=== PATIENT | male | born 1995 | race Caucasian/White ===

== ENCOUNTER 2019-10-18 11:30 | Inpatient (IN) | payer OTHER, SELFPAY ==
[2019-10-18] MEDS ORDERED: MORPHINE 4 MG/ML SYR ONE ×2 (12:24→14:25)
[2019-10-18] MEDS ORDERED: DOXYCYCLINE 100 MG CAP PO ONE (12:24)
[2019-10-18] MEDS ORDERED: ONDANSETRON 4 MG/2 ML VIAL ONE (12:24)
[2019-10-18] MEDS ORDERED: ACETAMINOPHEN 500 MG TAB ONE (12:24)
[2019-10-18] MEDS ORDERED: NA CHLORIDE 0.9% 2,000 ML ONE (12:25)
[2019-10-18] MEDS ORDERED: CEFTRIAXONE/SWI 2gm 2 GM/20 ML SYR IV ONE (12:30)
--- NOTE | 2019-10-18 12:44 | RAD REPORT ---
EXAM DESCRIPTION: US - Scrotum Testicles - 10/18/2019 12:28 pm CLINICAL HISTORY: testicular swelling Pain and swelling COMPARISON: No comparisons FINDINGS: The right testicle 3.9 x 3.1 x 2.1 cm. No intratesticular masses or evidence of testicular torsion. The left testicle 3.6 x 3.0 x 2.7 cm. No intratesticular masses or evidence of testicular torsion. Left epididymis appears enlarged and heterogenous with increased blood flow. No pathologic fluid collections. IMPRESSION: Moderate left epididymitis is suspected.
[2019-10-18 13:12] LABS: Absolute Lymphocytes (CBC) 2.7 K/uL (0.7-4.9); Basophils % 0.3 % (0-1.3); Hematocrit 44.5 % (39.6-49.0); MPV 8.3 fL (7.6-11.3)
[2019-10-18 13:22] LABS: ALT/SGPT 30 U/L (12-78); AST/SGOT 22 U/L (15-37); Alkaline Phosphatase 107 U/L (45-117); BUN Blood Urea Nitrogen 8 mg/dL (7-18); Bicarbonate 28 mmol/L (21-32); Bilirubin Direct 0.1 mg/dL (0-0.2); Bilirubin Total 0.4 mg/dL (0.2-1.0); Creatine Phosphokinase 51 U/L (39-308); Glucose Level 80 mg/dL (74-106); Potassium 3.7 mmol/L (3.5-5.1); Protein, Total 7.5 g/dL (6.4-8.2); Sodium Level 137 mmol/L (136-145)
[2019-10-18 13:36] LABS: Protime INR 1.23
[2019-10-18 13:44] LABS: Urine Bacteria 20-50 /HPF (NONE SEEN); Urine Culture Reflex Order NOT NEEDED; Urine RBC <5 /HPF (NONE SEEN)
--- NOTE | 2019-10-18 14:00 | RAD REPORT ---
EXAM DESCRIPTION: CTAbdomen Pelvis W Contrast - 10/18/2019 1:50 pm CLINICAL HISTORY: Abdominal pain. ABD PAIN COMPARISON: Scrotum Testicles dated 10/18/2019 TECHNIQUE: Biphasic CT imaging of the abdomen and pelvis was performed with 100 ml non-ionic IV cont rast. All CT scans are performed using dose optimization technique as appropriate and may include automated exposure control or mA/KV adjustment according to patient size. FINDINGS: The lung bases are clear. The liver, spleen, pancreas, adrenal glands and kidneys are within normal limits. No bowel obstruction, free air, free fluid or abscess. The appendix is normal. No evidence of signi ficant lymphadenopathy. No suspicious bony findings. There is evidence of inflammatory changes in the fat within the left ing uinal canal extending into the left scrotal sac. Scrotal hydrocele is seen, mild. IMPRESSION: Moderate inflammatory fat stranding is seen in the left inguinal canal extending caudad into the left scrotal sac. Elsewhere, no acute process seen.
[2019-10-18 14:25] LABS: Blood Morphology Comment NOT SEEN (NOT SEEN); Platelet Estimate ADEQ; Toxic Granulation PRESENT
[2019-10-18] MEDS ORDERED: KETOROLAC 30 MG/ML INJ ONE (14:25)
--- NOTE | 2019-10-18 16:13 | P.HP ---
Certification for Inpatient Patient admitted to: Inpatient With expected LOS: >2 Midnights Practitioner: I am a practitioner with admitting privileges, knowledge of patient current condition, hospital course, and medical plan of care. Services: Services provided to patient in accordance with Admission requirements found in Title 42 Section 412.3 of the Code of Federal Regulations Patient History Date of Service: 10/18/19 Reason for admission: scrotal pain History of Present Illness: Patient is a 24-year-old male with no significant past medical history who comes in with left scrotal pain and swelling for 1 day duration. Patient also reports some fever chills denies any nausea vomiting shortness of breath, chest pain. Patient is sexually active with the same partner denies any history of sexually transmitted infections. Patient does report some burning with urination along with some discharge. Patient noticed having swelling redness and pain in the scrotal area therefore came into the hospital for further evaluation. His symptoms are constant moderate progressively worsening. In the ER he was found to be septic white count 52011. The patient was given IV fluids, IV antibiotics. CT scan of the abdomen showed inflammation on the scrotal sac extending into the inguinal canal. Ultrasound showed epididymitis. Urology was consulted. Patient was referred for admission When seen in the ER he was awake alert oriented x3 in mild distress Allergies No Known Allergies Allergy (Unverified 10/18/19 12:29) Home medications list reviewed: Yes Home Medications: Quetiapine Fumarate [Seroquel Xr] 300 mg PO DAILY PRN 10/18/19 - Past Medical/Surgical History Diabetic: No Past Medical History: Patient denies medical history Past Surgical History: Patient denies surgical history - Family History Mother -: Cancer, Other (see notes) (Bipolar disorder) - Social History Smoking Status: Heavy Tobacco smoker (>10 cigarettes/day) Smoking therapy provided: Yes Alcohol use: Yes Place of Residence: Home Review of Systems 10-point ROS is otherwise unremarkable General: Fever Genitourinary: As per HPI Physical Examination - Vital Signs Temperature: 98 F Blood Pressure: 91/65 Pulse: 95 Respirations: 16 - Physical Exam General: Alert, Oriented x3, Acute distress, Other (Ill-appearing male) HEENT: Atraumatic, PERRLA, Mucous membr. moist/pink, EOMI, Sclerae nonicteric Neck: Supple, JVD not distended Respiratory: Clear to auscultation bilaterally, Normal air movement, Other (No wheezing stridor) Cardiovascular: No edema, Normal pulses, Normal S1 S2, Irregular heart rate/rhythm Gastrointestinal: Normal bowel sounds, Soft and benign, Non-distended, No tenderness Musculoskeletal: No clubbing, No erythema, No tenderness Integumentary: Erythema Neurological: Normal speech, Normal strength at 5/5 x4 extr, Normal tone, Cranial nerves 3-12 intact, Normal affect - Studies Laboratory Data (last 24 hrs) 10/18/19 12:50: PT 14.4 H, INR 1.23, APTT 31.0 10/18/19 12:50: WBC 26.7 H*, Hgb 15.1, Hct 44.5, Plt Count 257 10/18/19 12:50: Sodium 137, Potassium 3.7, BUN 8, Creatinine 0.96, Glucose 80, Total Bilirubin 0.4, AST 22, ALT 30, Alkaline Phosphatase 107 Imagings Data: EXAM DESCRIPTION: US - Scrotum Testicles - 10/18/2019 12:28 pm CLINICAL HISTORY: testicular swelling Pain and swelling COMPARISON: No comparisons FINDINGS: The right testicle 3.9 x 3.1 x 2.1 cm. No intratesticular masses or evidence of testicular torsion. The left testicle 3.6 x 3.0 x 2.7 cm. No intratesticular masses or evidence of testicular torsion. Left epididymis appears enlarged and heterogenous with increased blood flow. No pathologic fluid collections. IMPRESSION: Moderate left epididymitis is suspected. EXAM DESCRIPTION: CTAbdomen Pelvis W Contrast - 10/18/2019 1:50 pm CLINICAL HISTORY: Abdominal pain. ABD PAIN COMPARISON: Scrotum Testicles dated 10/18/2019 TECHNIQUE: Biphasic CT imaging of the abdomen and pelvis was performed with 100 ml non-ionic IV contrast. All CT scans are performed using dose optimization technique as appropriate and may include automated exposure control or mA/KV adjustment according to patient size. FINDINGS: The lung bases are clear. The liver, spleen, pancreas, adrenal glands and kidneys are within normal limits. No bowel obstruction, free air, free fluid or abscess. The appendix is normal. No evidence of significant lymphadenopathy. No suspicious bony findings. There is evidence of inflammatory changes in the fat within the left inguinal canal extending into the left scrotal sac. Scrotal hydrocele is seen, mild. IMPRESSION: Moderate inflammatory fat stranding is seen in the left inguinal canal extending caudad into the left scrotal sac. Elsewhere, no acute process seen. Male Exam - Male Exam Scrotum: Edema, Tenderness Testicular exam: Other (Left testicle if edema of tenderness to palpation and erythema) Penile exam: No discharge Assessment and Plan - Plan Sepsis. Patient has elevated white blood cell count hypotensive. Patient received IV fluid bolus. Will obtain cultures. Likely secondary to epididymitis. Continue IV antibiotics. Epididymitis. Scrotal ultrasound and CT abdomen reviewed. Dr. Lay with urology is been consulted by the ER. Continue IV antibiotics with Rocephin and doxycycline. Will check for other STI. Will order hepatitis HIV and RPR hepatitis panel. Patient counseled to use protection during intercourse. Will add azithromycin due to penal discharge. DVT prophylaxis with Lovenox. Patient will need continued hospitalization due to sepsis and ongoing IVF resuscitation IV antibiotics and possible surgical intervention if not improving. - Advance Directives Does patient have a Living Will: No Does patient have a Durable POA for Healthcare: No
[2019-10-18] MEDS ORDERED: ONDANSETRON 4 MG/2 ML VIAL IV PRN (16:43)
[2019-10-18] MEDS ORDERED: ACETAMINOPHEN 325 MG TABLET PO PRN (16:43)
[2019-10-18] MEDS: ENOXAPARIN 40 MG/0.4 ML SQ SCH (17:37)
[2019-10-18] MEDS: NA CHLORIDE 0.9% 1,000 ML IV SCH (17:37)
[2019-10-18 17:49] VITALS: BMI 31.1
[2019-10-18] MEDS ORDERED: AZITHROMYCIN 1 GM PACKET PO SCH (18:00)
[2019-10-18 20:45] LABS: Urine Blood NEGATIVE (NEG); Urine Glucose NEGATIVE (NEG); Urine Protein TRACE (NEG); Urine Specific Gravity 1.025 (1.005-1.030); Urine pH 7.5 (5.0-7.0)
[2019-10-18] MEDS: DOXYCYCLINE 100 MG in NA CHLORIDE 0.9% 100 ML IVPB SCH (21:12)
[2019-10-18] MEDS: HYDROCODONE/APAP 7.5/325 MG TAB PO PRN (21:15)
[2019-10-18] MEDS ORDERED: QUETIAPINE FUMARATE 300 MG PO PRN (21:21)
--- NOTE | 2019-10-18 22:31 | CON ---
History Of Present Illness: A 24-year-old male who suddenly developed left orchitis last night, whic h spread to the left inguinal area and fever and chills with possibly discharge something concentrate d urine, rule out pus. He was septic on arrival to the ER with a white count of 26,000, and tachycar dic. He had CT scan of the abdomen and pelvis. Ultrasound of the scrotum showing left epididymitis. CT scan shows inflammation in the left inguinal area as well as left scrotal area. No signs of Fou rnier gangrene. He said he has had UTIs about twice in his life, but never had a workup. He may pos sibly need a workup to make sure there is no urethral stricture, for example. He has urine culture p ending and blood culture is pending. Allergies: NO KNOWN DRUG ALLERGIES. Medication: No medications at home. Allergies: NONE. Current Medications: Include Zithromax, Rocephin, doxycycline, and Lovenox along with pain medicatio ns [place] and morphine sulfate. Past Medical History: None. Past Surgical History: None. Family History: Mother has cancer or bipolar disorder. Social History: He smokes 10 cigarettes a day. Drinks alcohol. Resides at home. Review of Systems: A 10-point review of systems as mentioned above. Some fever and urinary symptoms as mentioned. Did have some dysuria, however. Physical Examination: Vital Signs: T-max 98.9, 87, 20, 122/58, sats 98% on room air. General: He is alert, orient x3. No acute distress. HEENT: Atraumatic, normocephalic. Neck: Supple. Respiratory: Clear. Cardiovascular: S1-S2. Gastrointestinal: Normal bowel sounds. Musculoskeletal: Negative. Skin: Some erythema over the left scrotal area and tender scrotal area and phallus circumcised. No discharge. Right testicle normal. Left scrotum is swollen and tender. Left inguinal area is also t lizette. Laboratory Studies: White count 26.7, H and H 15 and 45, platelet count 258. Coagulation studies no rmal. Chemistries normal with albumin low at 3.0 and high at 4.5. UA shows less than 5 rbc's, white count 20-50, squamous cells 5-10, bacteria 20-50. Cultures pending and syphilis titer sent, hepatit is B, HIV, GC and chlamydia sent. Ultrasound of the testicle showed moderate left epididymitis and C T scan showed moderate inflammatory stranding in the left inguinal canal extending caudal to the left scrotal sac. Assessment: Left epididymal orchitis. Plan: IV antibiotics and await culture results. RONIT/NUVIA Voice ID: [id number] Report ID: [id number]
[2019-10-19 06:33] LABS: BUN Blood Urea Nitrogen 8 mg/dL (7-18); Bicarbonate 27 mmol/L (21-32); Glucose Level 96 mg/dL (74-106); Potassium 3.9 mmol/L (3.5-5.1); Sodium Level 140 mmol/L (136-145)
[2019-10-19 07:07] LABS: Absolute Lymphocytes (CBC) 3.4 K/uL (0.7-4.9); Basophils % 0.3 % (0-1.3); Lymphocytes % 18.8 % (15.3-44.8); MPV 9.6 fL (7.6-11.3)
[2019-10-19] MEDS: DOXYCYCLINE 100 MG in NA CHLORIDE 0.9% 100 ML IVPB SCH ×2 (08:50→21:25)
[2019-10-19] MEDS: CEFTRIAXONE/SWI 1gm 1 GM/10 ML SYR IVP SCH (08:50)
[2019-10-19] MEDS: MORPHINE 2 MG/ML SYR IV PRN ×2 (08:58→21:33)
[2019-10-19] MEDS: HYDROCODONE/APAP 7.5/325 MG TAB PO PRN (12:05)
[2019-10-19] MEDS: NA CHLORIDE 0.9% 1,000 ML IV SCH ×3 (12:05→21:23)
--- NOTE | 2019-10-19 12:53 | EKG ---
Test Date: 2019-10-18 Test Time: 12:04:23 Clay Roaster: LESLEE MEASUREMENT RESULTS: Intervals: Rate: 119 DC: 136 QRSD: 106 QT: 324 QTc: 455 [place]: P: 57 DC: 136 QRS: 29 T: 43 INTERPRETIVE STATEMENTS: Sinus tachycardia Otherwise normal ECG No previous ECG available for comparison Electronically Signed On 10-19-19 12:50:41 CDT by Chris Fernando
--- NOTE | 2019-10-19 13:47 | P.CNS ---
Date of Consult: 10/19/19 Subjective: The patient is a 24-year-old male who presents with a left scrotal pain and swelling x2 days. Patient found to have leukocytosis, sepsis and epididymitis which have been consulted for. Patient examined at bedside. Past medical/Surgical history: Denies any past medical or surgical history Family history: Noncontributory Social history: Smokes 5-20 cigarettes per day. Occasional alcohol use Allergies: NKDA Active Medications Acetaminophen (Tylenol -Tablet) 325 mg PO Q4H PRN PRN Reason: TEMP > 100' F Stop: 11/17/19 16:44 Hydrocodone Bitart/Acetaminophen ([place] 7.5/325 Mg) 1 tab PO Q4H PRN PRN Reason: Pain scale 8-10 (Severe) Stop: 11/17/19 16:44 Last Admin: 10/19/19 12:05 Dose: 1 tab Documented by: Enoxaparin Sodium (Lovenox 40 Mg Inj) 40 mg SQ DAILY 5 PM [facility] Stop: 11/17/19 17:16 Last Admin: 10/18/19 17:37 Dose: 40 mg Documented by: Home Med (Quetiapine Fumarate [Seroquel Xr]) 300 mg PO DAILY PRN PRN Reason: INSOMNIA Sodium Chloride (Ns 1000 Ml Ivbag) 1,000 mls @ 125 mls/hr IV .Q8H JESUS Stop: 11/17/19 16:44 Last Admin: 10/19/19 12:05 Dose: 1,000 mls Documented by: Doxycycline Hyclate 100 mg/ (Sodium Chloride) 100 mls @ 100 mls/hr IVPB Q12HR JESUS; Protocol Stop: 11/17/19 21:01 Last Admin: 10/19/19 08:50 Dose: 100 mls Documented by: Ceftriaxone Sodium/Sodium Chloride (Rocephin 1 Gm/10 Ml Swi Ivp) 1 gm in 10 mls @ 600 mls/hr IVP DAILY [facility]; Protocol Stop: 11/18/19 09:01 Last Admin: 10/19/19 08:50 Dose: 10 mls Documented by: Morphine Sulfate (Morphine Sulfate) 2 mg IV Q6H PRN PRN Reason: MODSEVPAIN Stop: 11/17/19 16:44 Last Admin: 10/19/19 08:58 Dose: 2 mg Documented by: Ondansetron HCl (Zofran) 4 mg IV Q4H PRN PRN Reason: NAUSEA / VOMITING Stop: 11/17/19 16:44 Sodium Chloride (Normal Saline Flush) 10 ml IV BID JESUS Stop: 11/17/19 21:01 Last Admin: 10/19/19 08:50 Dose: Not Given Documented by: ROS: General: reports sexually active with single partner. Reports good appetite CV: Denies chest pain RESP: Denies shortness of breath, cough ABD: Reports LLQ pain : Reports burning/pain with urination and smith discharge GI: Denies nausea, vomiting, diarrhea Skin: Reports erythema, swelling and pain to left testicle Objective: Temp Pulse Resp BP Pulse Ox 97.6 F 80 18 104/54 L 99 10/19/19 08:00 10/19/19 08:00 10/19/19 12:05 10/19/19 08:00 10/19/19 12:05 Labs: Na 140, K 3.9, BUN 8, Creat 0.93, Albumin 3.0, WBC 18, Plt [address] 10/17: EXAM DESCRIPTION: CTAbdomen Pelvis W Contrast - 10/18/2019 1:50 pm CLINICAL HISTORY: Abdominal pain. ABD PAIN COMPARISON: Scrotum Testicles dated 10/18/2019 TECHNIQUE: Biphasic CT imaging of the abdomen and pelvis was performed with 100 ml non-ionic IV contrast. All CT scans are performed using dose optimization technique as appropriate and may include automated exposure control or mA/KV adjustment according to patient size. FINDINGS: The lung bases are clear. The liver, spleen, pancreas, adrenal glands and kidneys are within normal limits. No bowel obstruction, free air, free fluid or abscess. The appendix is normal. No evidence of significant lymphadenopathy. No suspicious bony findings. There is evidence of inflammatory changes in the fat within the left inguinal canal extending into the left scrotal sac. Scrotal hydrocele is seen, mild. IMPRESSION: Moderate inflammatory fat stranding is seen in the left inguinal canal extending caudad into the left scrotal sac. Elsewhere, no acute process seen. Scrotum ultrasound 10/17: EXAM DESCRIPTION: US - Scrotum Testicles - 10/18/2019 12:28 pm CLINICAL HISTORY: testicular swelling Pain and swelling COMPARISON: No comparisons FINDINGS: The right testicle 3.9 x 3.1 x 2.1 cm. No intratesticular masses or evidence of testicular torsion. The left testicle 3.6 x 3.0 x 2.7 cm. No intratesticular masses or evidence of testicular torsion. Left epididymis appears enlarged and heterogenous with increased blood flow. No pathologic fluid collections. IMPRESSION: Moderate left epididymitis is suspected. ROS: General: Awake, alert CV: S1,S2 RESP: Good breath sounds ABD: Tenderness to LLQ extending down left groin Extremities:No edema Skin: Erythema, warm, and swollen left testicle Assessment and Plan: Sepsis & Leukocytosis, from epididymitis Urine and blood cultures show no growth to date Epididymitis, Currently on Rocephin and Doxycyclin Upon discharge can be switched to Doxycycline 100mg PO BID and Ciprofloxacin 500mg PO BID Antibiotic treatment for total of 14 days Will continue to monitor Thank you for consult Patient examined and discussed with Dr. Renteria
--- NOTE | 2019-10-19 13:59 | PN ---
Date of Progress Note: 10/19/2019 Patient seen and examined. Chart reviewed and case discussed with RN. Patient still having significant amount of pain and redness. No acute events overnight. Medications: List reviewed. Physical Examination: Vital Signs: Temperature 97.6, heart rate 80, blood pressure 104/54, respirations 18, O2 sat 99% on room air. General: Awake, alert, oriented x3, in some mild distress, ill-appearing male, obese. CV: S1, S2. Regular rate and rhythm. Peripheral pulses present. Respiratory: Moving air well bilaterally. No wheezing or stridor. Gastrointestinal: Abdomen is soft. Left inguinal area is tender. No rebound or guarding. Extremities: No clubbing, cyanosis, or edema. : Left testicle is red, swollen. Right testicle is normal. Extremities: No clubbing, cyanosis, or edema. Neuro: Nonfocal. Laboratory Data: Sodium 140, potassium 3.9, chloride 107, CO2 of 27, BUN 8, creatinine 0.93, glucose 96, calcium 8. WBC 18, H and H 13 and 38, platelets 226, neutrophils 72%. Cultures pending, so for growing mixed ximena. Blood cultures pending. Assessment And Plan: A 24-year-old male with: 1. Sepsis secondary to epididymitis. We will continue with intravenous fluids, intravenous antibiotics. White blood cell count is trending down. Blood pressure has improved. Continue with pain control. 2. Acute epididymitis on left. Appreciate Dr. Lay's input. We will continue with Rocephin, doxycycline. Patient received 1 time dose of 1 g of azithromycin. STI panel including HIV, hepatitis pending. 3. Generalized anxiety. Patient uses Seroquel. 4. Obesity BMI greater than 30. Counseled 5. Follow up with culture results, likely discharge in next 24 to 48 hours depending on clinical response. Deep vein thrombosis prophylaxis with Lovenox SA/MODL Voice ID: [id number] Report ID: [id number] MTDD
[2019-10-19] MEDS: ENOXAPARIN 40 MG/0.4 ML SQ SCH (17:15)
--- NOTE | 2019-10-19 18:14 | PN ---
Subjective: Patient is feeling well. Objective: Swelling is going down. [place] [address] [place] [address]. Urine culture showing less than 10,000 growths. Blood cultures were still pending. Serological tests are still pending home. Assessment: Left epididymal orchitis with extension to the left inguinal area. Plan: Continue antibiotics. Check cultures. Hopefully, the patient will go home with p.o. abx. RONIT/NUVIA Voice ID: [id number] Report ID: [id number] [facility]
[2019-10-19 22:19] LABS: RPR (Rapid Plasma Reagin) NON-REACT (NON-REACT)
[2019-10-20] MEDS: NA CHLORIDE 0.9% 1,000 ML IV SCH ×3 (00:43→08:43)
[2019-10-20 04:27] LABS: Absolute Lymphocytes (CBC) 3.9 K/uL (0.7-4.9); Basophils % 0.7 % (0-1.3); Hematocrit 39.4 % (39.6-49.0); Lymphocytes % 30.3 % (15.3-44.8); MPV 8.9 fL (7.6-11.3); RBC Red Blood Cell Count 4.15 M/uL (4.33-5.43)
[2019-10-20 04:39] LABS: BUN Blood Urea Nitrogen 7 mg/dL (7-18); Bicarbonate 28 mmol/L (21-32); Glucose Level 83 mg/dL (74-106); Potassium 3.9 mmol/L (3.5-5.1); Sodium Level 140 mmol/L (136-145)
[2019-10-20] MEDS: CEFTRIAXONE/SWI 1gm 1 GM/10 ML SYR IVP SCH (08:45)
[2019-10-20] MEDS: DOXYCYCLINE 100 MG in NA CHLORIDE 0.9% 100 ML IVPB SCH (08:46)
[2019-10-20 09:53] VITALS: O2SAT 98
[2019-10-20 09:54] VITALS: BP 132/69; TEMP 97.5
--- NOTE | 2019-10-20 23:42 | DS ---
Date of Discharge: 10/20/2019 Consultants: Dr. Lay with Urology and Dr. Renteria with Infectious Disease. Admitting Diagnoses: 1.Sepsis secondary to epididymitis. 2.Acute right epididymitis. 3.Obesity. Discharge Diagnoses: 1.Sepsis, resolved. 2.Acute epididymitis on the left, improved. 3.Generalize anxiety, on Seroquel p.r.n. 4.Obesity, BMI of greater than 31. Hospital Course: Patient is a 24-year-old male, came in with left-sided scrotal pain and swelling an d redness. Patient had unprotected sex. Patient was found to be septic. Patient was febrile, hypot ensive with white blood cell count of 26,000. He was admitted to the hospital for further evaluation . His ultrasound showed left-sided epididymitis. CT scan showed moderate inflammatory fat stranding in the left inguinal canal extending caudad into the left scrotal sac. There was no abscess. Patie nt was seen by Dr. Lay with Urology, did not recommend any surgical intervention. Patient improved with IV antibiotics. He was counseled extensively regarding safe sex and to use protection. He voi eugenio understanding. Patient was also tested for syphilis, which was negative. GC was pending as was the hepatitis and HIV panel. His urine culture showed mixed ximena. Blood cultures were negative to date. His sepsis improved. His blood pressure also improved. His white blood cell count came down to 13,000 from 26,000. He was afebrile for greater than 48 hours and greater than 24 hours. He was able to tolerate his diet. Patient was recommended to be discharged on 2 weeks total of Cipro and do xy. He did receive azithromycin to cover for gonorrhea as he did have penile discharge. Patient was then stable, sent home in a stable condition. Activity: As tolerated. Medications: As per medication reconciliation list. He is not to take Seroquel while on Cipro. Followup: With urologist, Dr. Lay in 2 weeks. Follow up with Infectious Disease, Dr. Renteria, in 2 weeks. Establish care with PCP in 1 week. Return to ER for worsening condition. Follow up with he patitis and HIV panel through PCP or urologist. Physical Examination: General: Awake, alert, oriented x3. No acute distress. CV: S1, S2. Respiratory: Moving air well bilaterally. Abdomen: Soft, nontender, nondistended. Minimal tenderness on the left inguinal area. : Left testicle minimally swollen, erythema significantly improved. Extremities: No clubbing, cyanosis, edema. Neurologic: Nonfocal. Total time spent discharging patient was 35 minutes. CLARENCE Voice ID: [id number] Report ID: [id number]
[2019-10-21 15:30] LABS: HIV AG/AB 4TH GEN Non-reactive (Non-reactive)
[2019-10-22 03:24] LABS: HBsAG Nonreactive (Nonreactive)
--- NOTE | 2019-10-24 13:19 | ER ---
Nurse's Notes [facility] Name: Caio Moore Age: 24 yrs Sex: Male : 1995 Arrival Date: 10/18/2019 Time: 11:33 Bed 16 Private MD: Diagnosis: Severe sepsis;Epididymitis Presentation: 10/17 11:43 Chief complaint: Patient states: DYSURIA YESTERDAY, LEFT TESTICLE SWELLING AND LEFT bp GROIN PAIN SINCE Y/D. Coronavirus screen: Proceed with normal triage. Ebola Screen: No symptoms or risks identified at this time. Initial Sepsis Screen: Does the patient meet any 2 criteria? HR > 90 bpm. No. Patient's initial sepsis screen is negative. Does the patient have a suspected source of infection? Yes: Dysuria/Frequency/Urgency/UTI. Risk Assessment: Do you want to hurt yourself or someone else? Patient reports no desire to harm self or others. Onset of symptoms is unknown. 11:43 Method Of Arrival: Wheelchair bp 11:43 Acuity: TRISTON 3 bp Triage Assessment: 11:48 General: Appears distressed, uncomfortable, Behavior is cooperative, appropriate for bp age, anxious. 11:48 Pain: Complains of pain in pelvis. EENT: No deficits noted. Neuro: No deficits noted. bp Cardiovascular: No deficits noted. Respiratory: No deficits noted. GI: No deficits noted. : Reports burning with urination, discharge. Derm: No deficits noted. Musculoskeletal: No deficits noted. Historical: - Allergies: 11:48 No Known Allergies; bp - Home Meds: 11:48 Seroquel Oral [Active]; bp - PMHx: 11:48 INSOMNIA; bp - Immunization history:: Adult Immunizations up to date. - Social history:: Smoking status: Patient denies any tobacco usage or history of. Screenin:45 Abuse screen: Denies threats or abuse. Denies injuries from another. Nutritional bp screening: No deficits noted. Tuberculosis screening: No symptoms or risk factors identified. Fall Risk None identified. Assessment: 11:45 General: SEE TRIAGE NOTE. bp 12:30 Reassessment: PT RETURNED FROM [place] bp Vital Signs: 11:43 BP 124 / 77; Pulse 123; Resp 17; Temp 100.7; Pulse Ox 99% ; Weight 99.79 kg; Height 5 bp ft. 11 in. (180.34 cm); 12:30 BP 129 / 68; Pulse 119; Resp 19; Pulse Ox 99% ; bp 13:00 BP 120 / 88; Pulse 110; Resp 17; Pulse Ox 100% ; bp 15:00 BP 102 / 66; Pulse 117; Resp 16; Pulse Ox 97% ; bp 16:00 BP 91 / 65; Pulse 95; Resp 16; Temp 98.9; Pulse Ox 97% ; bp 11:43 Body Mass Index 30.68 (99.79 kg, 180.34 cm) bp ED Course: 11:33 Patient arrived in ED. ag5 11:36 Aguila Fernandez, RN is Primary Nurse. bp 11:36 Nathanael Villafuerte PA is PHCP. jr8 11:36 Bhavesh Guillen MD is Attending Physician. jr8 11:45 Triage completed. bp 11:45 Patient has correct armband on for positive identification. Placed in gown. Bed in low bp position. Call light in reach. Side rails up X2. 11:50 Arm band placed on. bp 12:30 US Scrotum Testicles In Process Unspecified. EDMS 12:45 Inserted saline lock: 20 gauge in left forearm, using aseptic technique. Blood bp collected. 13:52 CT Abd/Pelvis - IV Contrast Only In Process Unspecified. EDMS 14:10 Carlos Miller MD is Hospitalizing Provider. jr8 16:24 No provider procedures requiring assistance completed. Patient admitted, IV remains in bp place. Administered Medications: 12:45 Drug: Acetaminophen 1000 mg Route: PO; bp 16:31 Follow up: Response: Temperature is decreased bp 12:45 Drug: NS 0.9% (30 ml/kg) 30 ml/kg Route: IV; Rate: bolus; Site: left forearm; bp 16:31 Follow up: IV Status: Completed infusion; IV Intake: 3000ml bp 12:45 Drug: morphine 4 mg Route: IVP; Site: left forearm; bp 14:11 Follow up: Response: Pain is decreased bp 12:45 Drug: Zofran (Ondansetron) 4 mg Route: IVP; Site: left forearm; bp 14:11 Follow up: Response: No adverse reaction bp 13:05 Drug: Rocephin 2 grams Route: IV; Rate: calculated rate; Site: left forearm; bp 16:24 Follow up: IV Status: Completed infusion; IV Intake: 20ml bp 13:05 Drug: Doxycycline 100 mg Route: PO; bp 14:11 Follow up: Response: No adverse reaction bp 14:15 Drug: TORadol - Ketorolac 15 mg Route: IVP; Site: left forearm; bp 16:25 Follow up: Response: No adverse reaction; Pain is decreased bp 14:15 Drug: morphine 4 mg Route: IVP; Site: left forearm; bp 16:25 Follow up: Response: No adverse reaction; Pain is decreased bp Intake: 16:24 IV: 20ml; Total: 20ml. bp 16:31 IV: 3000ml; Total: 3020ml. bp Outcome: 14:11 Decision to Hospitalize by Provider. larissa 16:29 Admitted to Med/surg accompanied by tech, via stretcher, room 223, with chart, Report bp called to ANÍBAL RN 16:29 Condition: stable 16:29 Instructed on the need for admit. 17:15 Patient left the ED. bp Signatures: Dispatcher [employer] EDNathanael Hernandez PA PA jr8 Aguila Fernandez, RN RN bp David Hinds ag5
--- NOTE | 2019-10-24 13:20 | EDPHYS ---
Physician Documentation [facility] Name: Caio Moore Age: 24 yrs Sex: Male : 1995 Arrival Date: 10/18/2019 Time: 11:33 Bed 16 Private MD: ED Physician Bhavesh Guillen HPI: 10/17 12:10 This 24 yrs old Male presents to ER via Wheelchair with complaints of jr8 Testicular Swelling, Testicular Pain. 12:10 The patient presents with scrotal pain, of the left side, with swelling, with erythema, jr8 tenderness, that is moderate, of the left inguinal area, in the area of the epidydimis. Onset: The symptoms/episode began/occurred acutely, yesterday. Modifying factors: The symptoms are alleviated by nothing, the symptoms are aggravated by urinating. Associated signs and symptoms: Pertinent positives: abdominal pain, dysuria, fever. Severity of symptoms: At their worst the symptoms were moderate, in the emergency department the symptoms are unchanged. The patient has not experienced similar symptoms in the past. The patient has not recently seen a physician. Stated that he is sexually active with one partner. Has also seen yellow discharge from urethra . Historical: - Allergies: 11:48 No Known Allergies; bp - Home Meds: 11:48 Seroquel Oral [Active]; bp - PMHx: 11:48 INSOMNIA; bp - Immunization history:: Adult Immunizations up to date. - Social history:: Smoking status: Patient denies any tobacco usage or history of. ROS: 12:10 Eyes: Negative for injury, pain, redness, and discharge, ENT: Negative for injury, jr8 pain, and discharge, Neck: Negative for injury, pain, and swelling, Cardiovascular: Negative for chest pain, palpitations, and edema, Respiratory: Negative for shortness of breath, cough, wheezing, and pleuritic chest pain, Back: Negative for injury and pain, MS/Extremity: Negative for injury and deformity, Skin: Negative for injury, rash, and discoloration, Neuro: Negative for headache, weakness, numbness, tingling, and seizure. 12:10 Constitutional: Positive for fever. 12:10 Abdomen/GI: Positive for abdominal pain, nausea, Negative for vomiting, diarrhea, constipation, abdominal cramps, abdominal distension. 12:10 : Positive for urinary symptoms, burning with urination, penile discharge, testicular pain Exam: 12:10 Eyes: Pupils equal round and reactive to light, extra-ocular motions intact. Lids and jr8 lashes normal. Conjunctiva and sclera are non-icteric and not injected. Cornea within normal limits. Periorbital areas with no swelling, redness, or edema. ENT: Nares patent. No nasal discharge, no septal abnormalities noted. Tympanic membranes are normal and external auditory canals are clear. Oropharynx with no redness, swelling, or masses, exudates, or evidence of obstruction, uvula midline. Mucous membranes moist. Neck: Trachea midline, no thyromegaly or masses palpated, and no cervical lymphadenopathy. Supple, full range of motion without nuchal rigidity, or vertebral point tenderness. No Meningismus. Cardiovascular: Regular rate and rhythm with a normal S1 and S2. No gallops, murmurs, or rubs. Normal PMI, no JVD. No pulse deficits. Respiratory: Lungs have equal breath sounds bilaterally, clear to auscultation and percussion. No rales, rhonchi or wheezes noted. No increased work of breathing, no retractions or nasal flaring. Skin: Warm, dry with normal turgor. Normal color with no rashes, no lesions, and no evidence of cellulitis. MS/ Extremity: Pulses equal, no cyanosis. Neurovascular intact. Full, normal range of motion. Neuro: Awake and alert, GCS 15, oriented to person, place, time, and situation. Cranial nerves II-XII grossly intact. Motor strength 5/5 in all extremities. Sensory grossly intact. Cerebellar exam normal. Normal gait. 12:10 Abdomen/GI: Inspection: abdomen appears normal, Bowel sounds: active, all quadrants, Palpation: soft, in all quadrants, moderate abdominal tenderness, in the left lower quadrant, mass, is not appreciated, rebound tenderness, is not appreciated, voluntary guarding, is not appreciated, involuntary guarding, is not appreciated, no appreciated organomegaly, Indicators: McBurney's point is not tender, Goff's sign is negative, Rovsing's sign is negative, Liver: no appreciated palpable abnormalities. 12:10 : Male external genitalia: Circumcision noted. erythema, of the left testicle is seen, that is mild, swelling: of the left testicle is noted, testicle, tenderness, of the left testicle is noted, is palpated in the left inguinal area, of the epididymis area, that is moderate, Sexual behavior: the patient is sexually active, and reports a single partner. 12:19 ECG was reviewed by the Attending Physician. jr8 Vital Signs: 11:43 BP 124 / 77; Pulse 123; Resp 17; Temp 100.7; Pulse Ox 99% ; Weight 99.79 kg; Height 5 bp ft. 11 in. (180.34 cm); 12:30 BP 129 / 68; Pulse 119; Resp 19; Pulse Ox 99% ; bp 13:00 BP 120 / 88; Pulse 110; Resp 17; Pulse Ox 100% ; bp 15:00 BP 102 / 66; Pulse 117; Resp 16; Pulse Ox 97% ; bp 16:00 BP 91 / 65; Pulse 95; Resp 16; Temp 98.9; Pulse Ox 97% ; bp 11:43 Body Mass Index 30.68 (99.79 kg, 180.34 cm) bp MDM: 11:36 Patient medically screened. 8 14:09 Data reviewed: vital signs, nurses notes, lab test result(s), radiologic studies, jr8 doppler. Data interpreted: Pulse oximetry: on room air is 100 %. Interpretation: normal. Counseling: I had a detailed discussion with the patient and/or guardian regarding: the historical points, exam findings, and any diagnostic results supporting the discharge/admit diagnosis, lab results, radiology results, the need for further work-up and treatment in the hospital. 14:44 ED course: Spoke with Dr. Lay about case who will consult on case. Asked Dr. Miller to 8 add HIV and hepatitis panel as well which he said he will do. 10/17 11:50 Order name: Urine Culture 10/17 11:50 Order name: Basic Metabolic Panel; Complete Time: 13:23 [facility] 10/17 11:50 Order name: Blood Culture Adult (2) [facility] 10/17 11:50 Order name: CBC with Diff; Complete Time: 14:28 [facility] 10/17 11:50 Order name: CPK; Complete Time: 13:23 [facility] 10/17 11:50 Order name: Lactate; Complete Time: 13:53 [facility] 10/17 11:50 Order name: LFT's; Complete Time: 13:23 [facility] 10/17 11:50 Order name: Procalcitonin; Complete Time: 13:53 [facility] 10/17 11:50 Order name: Protime (+inr); Complete Time: 13:53 [facility] 10/17 11:50 Order name: Ptt, Activated; Complete Time: 13:53 [facility] 10/17 11:50 Order name: Urine Microscopic Only; Complete Time: 13:53 [facility] 10/17 11:50 Order name: Gc Culture [facility] 10/17 13:37 Order name: Urine Dipstick--Ancillary (enter results) 10/17 14:26 Order name: Manual Differential; Complete Time: 14:28 [facility] 10/17 11:50 Order name: Accucheck; Complete Time: 13:06 [facility] 10/17 11:50 Order name: Cardiac monitoring; Complete Time: 13:06 [facility] 10/17 11:50 Order name: EKG - Nurse/Tech; Complete Time: 12:11 [facility] 10/17 11:52 Order name: US Scrotum Testicles; Complete Time: 12:49 [facility] 10/17 13:32 Order name: CT Abd/Pelvis - IV Contrast Only; Complete Time: 14:02 [facility] 10/17 14:57 Order name: Hepatitis Panel,Acute [facility] 10/17 14:57 Order name: HIV (1 [facility] 10/17 14:59 Order name: RPR [facility] 10/17 11:50 Order name: IV Saline Lock - Large Bore; Complete Time: 13:06 [facility] 10/17 11:50 Order name: Labs collected and sent; Complete Time: 13:06 [facility] 10/17 11:50 Order name: O2 Per Protocol; Complete Time: 12:11 [facility] 10/17 11:50 Order name: O2 Sat Monitoring; Complete Time: 12:11 [facility] 10/17 11:50 Order name: Urine Dipstick-Ancillary (obtain specimen); Complete Time: 13:12 EC:19 Rate is 119 beats/min. Rhythm is regular, Sinus tachycardia. QRS Metaline is Normal. FL jr8 interval is normal at 136 msec. QRS interval is normal at 106 msec. QT interval is normal at 455 msec. No Q waves. T waves are Normal. No ST changes noted. Clinical impression: Sinus tachycardia and No evidence of ischemia. Interpreted by me. Reviewed by me. Administered Medications: 12:45 Drug: Acetaminophen 1000 mg Route: PO; bp 16:31 Follow up: Response: Temperature is decreased bp 12:45 Drug: NS 0.9% (30 ml/kg) 30 ml/kg Route: IV; Rate: bolus; Site: left forearm; bp 16:31 Follow up: IV Status: Completed infusion; IV Intake: 3000ml bp 12:45 Drug: morphine 4 mg Route: IVP; Site: left forearm; bp 14:11 Follow up: Response: Pain is decreased bp 12:45 Drug: Zofran (Ondansetron) 4 mg Route: IVP; Site: left forearm; bp 14:11 Follow up: Response: No adverse reaction bp 13:05 Drug: Rocephin 2 grams Route: IV; Rate: calculated rate; Site: left forearm; bp 16:24 Follow up: IV Status: Completed infusion; IV Intake: 20ml bp 13:05 Drug: Doxycycline 100 mg Route: PO; bp 14:11 Follow up: Response: No adverse reaction bp 14:15 Drug: TORadol - Ketorolac 15 mg Route: IVP; Site: left forearm; bp 16:25 Follow up: Response: No adverse reaction; Pain is decreased bp 14:15 Drug: morphine 4 mg Route: IVP; Site: left forearm; bp 16:25 Follow up: Response: No adverse reaction; Pain is decreased bp Disposition: 18:22 Co-signature as Attending Physician, Bhavesh Guillen MD. rn Disposition: 10/18/19 14:11 Hospitalization ordered by Carlos Miller for Inpatient Admission. Preliminary diagnosis are Severe sepsis, Epididymitis. - Bed requested for Telemetry/MedSurg (Inpatient). - Status is Inpatient Admission. bp - Condition is Fair. - Problem is new. - Symptoms have improved. Signatures: Dispatcher [employer] EDMS Bhavesh Guillen MD MD rn Nathanael Villafuerte PA PA jr8 Aguila Fernandez, RN RN April Armendariz Corrections: (The following items were deleted from the chart) 15:38 14:11 Hospitalization Ordered by Carlos Miller MD for Inpatient Admission. Preliminary eb diagnosis is Severe sepsis; Epididymitis. Bed requested for Telemetry/MedSurg (Inpatient). Status is Inpatient Admission. Condition is Fair. Problem is new. Symptoms have improved. jr8 17:15 15:38 10/18/2019 14:11 Hospitalization Ordered by Carlos Miller MD for Inpatient bp Admission. Preliminary diagnosis is Severe sepsis; Epididymitis. Bed requested for Telemetry/MedSurg (Inpatient). Status is Inpatient Admission. Condition is Fair. Problem is new. Symptoms have improved. eb
[2019-10-26 14:39] LABS: C.trachomatis RNA,TMA Not Detected (Not Detected)
== END 2019-10-20 11:13 | disposition home or self-care (01) | DRG 872 ==
LOC: ER 11:30 → ERHOLD 14:55 → 2ND 16:30
PROVIDERS: ADMIT Family Medicine; ATTEND Family Medicine
DX: A41.9 Sepsis, unspecified organism (principal); N45.1 Epididymitis; F17.210 Nicotine dependence, cigarettes, uncomplicated; N45.2 Orchitis; F41.9 Anxiety disorder, unspecified; E66.9 Obesity, unspecified; Z68.30 Body mass index [BMI] 30.0-30.9, adult; Z79.899 Other long term (current) drug therapy
CPT/HCPCS: 36415; 74177; 76870; 80048; 80074; 80076; 81003; 81015; 82550; 83605; 84145; 85025; 85610; 85730; 86592; 87040; 87086; 87088; 87389; 87490; 87590; 93005; 94760; 96365; 96366; 96375; 99285; J0696; J1650; J2270; J2405; J7030; Q9967

== ENCOUNTER 2024-01-11 23:35 | Emergency (ER) | payer SELFPAY ==
--- NOTE | 2024-01-11 23:47 | EDPHYS ---
Physician Documentation [facility] Name: Caio Moore Age: 28 yrs Sex: Male : 1995 Arrival Date: 01/11/2024 Time: 23:35 Bed Waiting Private MD: ED Physician Meet Green HPI: 01/10 23:48 This 28 yrs old Male presents to ER via Unassigned with complaints of Leg Pain. kb 23:48 Pt is a 28 year old male who presents for redness and swelling to right lower leg that kb started 7 days ago. States he had a scratch on his leg and also got bit by some ants so is not sure which caused the infection. Denies fever, nausea, vomiting. . Historical: - Allergies: 23:48 No Known Allergies; ss - Home Meds: 23:48 None [Active]; ss - PMHx: 23:48 insomnia; ss - Immunization history:: Client reports receiving the 2nd dose of the Covid vaccine. - Infectious Disease History:: Denies. - Social history:: Smoking status: Patient reports the use of cigarette tobacco products, smokes one pack cigarettes per day. ROS: 23:47 Constitutional: As per HPI kb Exam: 23:47 Constitutional: This is a well developed, well nourished patient who is awake, alert, kb and in no acute distress. Head/Face: Normocephalic, atraumatic. ENT: Moist Mucous membranes Cardiovascular: Regular rate Respiratory: Respirations even and unlabored. No increased work of breathing. Talking in full sentences MS/ Extremity: Pulses equal, no cyanosis. Neurovascular intact. Full, normal range of motion. Neuro: Awake and alert, GCS 15, oriented to person, place, time, and situation. Moves all extremities. Normal gait. 23:47 Skin: cellulitis, that is moderate, on the right duncan, Vital Signs: 23:45 BP 126 / 67; Pulse 87; Resp 16; Temp 98.7(TE); Pulse Ox 97% on R/A; Weight 104.33 kg; ss Height 6 ft. 0 in. ; Pain 5/10; 23:45 Body Mass Index 31.19 (104.33 kg, 182.88 cm) ss 23:45 Pain Scale: Adult ss MDM: 23:41 Patient medically screened. kb 23:47 Differential diagnosis: abscess, insect bite, cellulitis. Data reviewed: vital signs, kb nurses notes. Historians other than the Patient: Spouse/Significant Other: significant other. Counseling: I had a detailed discussion with the patient and/or guardian regarding the historical points, exam findings, and any diagnostic results supporting the discharge/admit diagnosis, the need for outpatient follow up, a family practitioner, to return to the emergency department if symptoms worsen or persist or if there are any questions or concerns that arise at home. 23:48 Test considered but Not performed: Labs: cbc, cmp considered but pt is nontoxic in kb appearance, afebrile. . Administered Medications: 23:58 Drug: Cephalexin PO 500 mg PO once Route: PO; 23:59 Follow up: Response: Medication Administered at Departure 23:59 Drug: Trimethoprim-Sulfamethoxazole PO (160 mg-800 mg (DS) 1 tablet PO once Route: PO; 23:59 Follow up: Response: Medication Administered at Departure Disposition: 01/11 02:40 Co-signature as Attending Physician, Meet Green MD I reviewed the patient's care rt provided by the Advanced Practice Provider and agree with the diagnosis and treatment plan. Disposition Summary: 01/11/24 23:47 Discharge Ordered Notes: Location: Home kb Condition: Stable kb Diagnosis - Cellulitis of right lower limb kb Followup: kb - With: Emergency Department - When: As needed - Reason: Worsening of condition Followup: kb - With: Private Physician - When: 2 - 3 days - Reason: Recheck today's complaints, Continuance of care, Re-evaluation by your physician Discharge Instructions: - Discharge Summary Sheet kb - Cellulitis, Adult, [id number] kb Forms: - Medication Reconciliation Form kb - Antibiotic Education kb - Prescription Opioid Use kb - Patient Portal Instructions kb - Leadership Thank You Letter kb Prescriptions: - Cephalexin 500 mg Oral Capsule - take 1 capsule ORAL route every 8 hours for 10 days; 30 capsule; Refills: 0, kb Product Selection Permitted - Bactrim DS 800-160 mg Oral Tablet - take 1 tablet ORAL route every 12 hours for 10 days; 20 tablet; Refills: 0, kb Product Selection Permitted Signatures: Chika Spears, Marlene Blancas RN RN Meet Loredo MD MD rt
[2024-01-11] MEDS ORDERED: SMZ./TMP. 800/160 MG TABLET ONE (23:52)
[2024-01-11] MEDS ORDERED: CEPHALEXIN 250 MG CAP ONE (23:52)
--- NOTE | 2024-01-12 | ER ---
Nurse's Notes [facility] Name: Caio Moore Age: 28 yrs Sex: Male : 1995 Arrival Date: 01/11/2024 Time: 23:35 Bed Waiting [facility] MD: Diagnosis: Cellulitis of right lower limb Presentation: 01/10 23:45 Chief complaint: Patient states: Redness, swelling and open sore to R lower leg that ss began x 1 week. Denies fever. Coronavirus screen: Client denies travel out of the [place] in the last 14 days. Ebola Screen: Patient denies exposure to infectious person. Patient denies travel to an Ebola-affected area in the 21 days before illness onset. Initial Sepsis Screen: Does the patient meet any 2 criteria? No. Patient's initial sepsis screen is negative. Does the patient have a suspected source of infection? No. Patient's initial sepsis screen is negative. Risk Assessment: Do you want to hurt yourself or someone else? Patient reports no desire to harm self or others. Onset of symptoms was January 04, 2024. 23:45 Method Of Arrival: Ambulatory ss 23:45 Acuity: TRISTON 3 ss Triage Assessment: 23:48 General: Appears uncomfortable, Behavior is calm, cooperative. Pain: Complains of pain ss in right duncan Pain currently is 5 out of 10 on a pain scale. Is continuous. Neuro: Level of Consciousness is awake, alert, obeys commands, Oriented to person, place, time, situation. Respiratory: Respiratory effort is even, unlabored. Derm: Skin is intact, is healthy with good turgor, Skin is pink, warm \T\ dry. normal. Historical: - Allergies: 23:48 No Known Allergies; ss - Home Meds: 23:48 None [Active]; ss - PMHx: 23:48 insomnia; ss - Immunization history:: Client reports receiving the 2nd dose of the Covid vaccine. - Infectious Disease History:: Denies. - Social history:: Smoking status: Patient reports the use of cigarette tobacco products, smokes one pack cigarettes per day. Screenin:50 Abuse screen: Denies threats or abuse. Denies injuries from another. Nutritional ss screening: No deficits noted. Tuberculosis screening: Never had TB. Vital Signs: 23:45 BP 126 / 67; Pulse 87; Resp 16; Temp 98.7(TE); Pulse Ox 97% on R/A; Weight 104.33 kg; ss Height 6 ft. 0 in. ; Pain 5/10; 23:45 Body Mass Index 31.19 (104.33 kg, 182.88 cm) ss 23:45 Pain Scale: Adult ss ED Course: 23:38 Patient arrived in ED. jj6 23:41 Chika Spears FNP-C is [facility]. kb 23:41 Meet Green MD is Attending Physician. kb 23:48 Triage completed. ss 23:48 Arm band placed on right wrist. ss 23:50 No provider procedures requiring assistance completed. Patient did not have IV access ss during this emergency room visit. Administered Medications: 23:58 Drug: Cephalexin PO 500 mg PO once Route: PO; ss 23:59 Follow up: Response: Medication Administered at Departure 23:59 Drug: Trimethoprim-Sulfamethoxazole PO (160 mg-800 mg (DS) 1 tablet PO once Route: PO; ss 23:59 Follow up: Response: Medication Administered at Departure Outcome: 23:47 Discharge ordered by . kb 23:59 Discharged to home ambulatory, with family, 23:59 Condition: good 23:59 Discharge instructions given to patient, family, Instructed on discharge instructions, follow up and referral plans. medication usage, wound care, Demonstrated understanding of instructions, follow-up care, medications, wound care, Prescriptions given X 2, 23:59 Patient left the ED. Signatures: Chika Spears FNP-C FNP-Ckb Blanchard, Shelby, RN RN Marli Horner jj6
[2024-01-12 00:06] VITALS: BP 126/67; TEMP 98.7; O2SAT 97
--- OUTSIDE RECORDS SUMMARY | 2024-01-12 14:36 | XMS REPORT | Continuity of Care Document ---
Author Name Unknown Address [address] [facility] [address] th[address] Address [address] [facility] [address] [place] [address] Care Team Providers Care Surveillance Sensor Officer Name Role Phone Mauricio Rene Attending Clinician Unavailable Mauricio Rene Attending Clinician Unavailable Mauricio Rene Admitting Clinician Unavailable Allergies, Adverse Reactions, Alerts Allergy Name Allergy Type Status Severity Reaction(s) Onset Date Inactive Date Treating Clinician Comments Source No Known Allergie s Drug Active [facility] Vital Signs Vital Name Observation Time Observation Value Comments S ource Height/Length Measured 2021-06-11 12:37:11 180.3 cm Weight Dosing 2021-06-11 12:37:11 99.80 kg Height/Length Measured 2021-06-11 12:30:31 180.3 cm Weight Dosing 2021-06-11 12:30:31 99.80 kg Height/Length Measured 2021-06-11 11:27:50 180.3 cm Weight Dosing 2021-06-11 11:27:50 99.80 kg Height/Length Measured 2021-06-11 11:26:42 180.3 cm Weight Dosing 2021-06-11 11:26:42 99.80 kg Height/Length Measured 2021-06-11 11:13:57 180.3 cm Weight Dosing 2021-06-11 11:13:57 99.80 kg Height/Length Measured 2021-06-11 11:13:08 180.3 cm Weight Dosing 2021-06-11 11:13:08 99.80 kg Height/Length Measured 2021-06-11 10:02:04 180.3 cm Weight Dosing 2021-06-11 10:02:04 99.80 kg Height/Length Measured 2021-06-11 09:57:40 180.3 cm Weight Dosing 2021-06-11 09:57:40 99.80 kg Height/Length Measured 2021-06-11 08:55:39 180.3 cm Weight Dosing 2021-06-11 08:55:39 99.80 kg Encounters Start Date/Time End Date/Time Encounter Type Admission Type Attending Clinicians Care Facility Care Department Encounter ID Source 2019-01-21 12:20:00 2019-02-08 12:13:00 Inpatient 1 Mauricio Rene Michael [facility] PSY [id number] [facility] Results Test Description Test Time Test Comments Results Result Co mments Source [place] [id number] 08:38:30* Test Item Value Reference Range Interpretation Comme nts [place] Level (test code = [place] Level) 0.75 mmol/L 0.60-1.20 POC [id number] 20:14:43* Test Item Value Reference Range Interpretation Comme nts Glucose POC (test code = Glucose POC) 173 mg/dL 70-115 H If you consi will your patient critically ill, the Gladys-Accu Check Infrom II meter should not be used for Glucose determination. Draw a venous Glucose and send to the main Lab for analysis. [place] [id number] 08:49:08* Test Item Value Reference Range Interpretation Comme nts [place] Level (test code = [place] Level) 0.47 mmol/L 0.60-1.20 L RPR [id number] 13:24:16* Test Item Value Reference Range Interpretation Comme nts RPR Qual (test code = RPR Qual) Non-Reactive Non-Reactive Reactive Control (test code = Reactive Control) Reactive Weak Reactive Control (test code = Weak Reactive Control) Weak Reactive Non-Reactive Control (test c ode = Non-Reactive Control) Non-Reactive Lot # (test code = Lot #) [id number] N Expiration Dt (test code = Expiration Dt) 31.20 N Thyroid Stimulating [id number] 07:44:29* Test Item Value Reference Range Interpretation Comme nts TSH (test code = TSH) 4.030 mIU/mL 0.270-4.200 Lipid [id number] 07:36:14* Test Item Value Reference Range Interpretation Comme nts Cholesterol Total (test code = Cholesterol Total) 149 mg/dL 0-200 RISK OF HEART DISEASEPublished by [place] Heart Association Analyte Optimal Borderline Increased RiskCHOL <200 200-239 >240TRIG <150 150-199 >200HDL Male >60 <40HDL Female >60 <50LDL <100 130-159 >160LDL Near optimal is 100-129 Triglycerides (test code = Triglycerides) 87 mg/dL 9-200 HDL (test code = HDL) 69 mg/dL 40-60 H Chol/HDL (test code = Chol/HDL) 2.2 ratio 0.0-5.0 Lipid [id number] 07:36:14* Test Item Value Reference Range Interpretation Comme nts Cholesterol Total (test code = Cholesterol Total) 149 mg/dL 0-200 RISK OF HEART DISEASEPublished by [place] [employer] Analyte Optimal Borderline Increased RiskCHOL <200 200-239 >240TRIG <150 150-199 >200HDL Male >60 <40HDL Female >60 <50LDL <100 130-159 >160LDL Near optimal is 100-129 Triglycerides (test code = Triglycerides) 87 mg/dL 9-200 HDL (test code = HDL) 69 mg/dL 40-60 H LDL (test code = LDL) 63 mg/dL 0-130 The equation being used in this calculation is LDL = (Chol - HDL) - (Trig / 5) VLDL (test code = VLDL) 17 mg/dL 5-40 The equation aquilino ng used in this calculation is VLDL = Trig / 5 Chol/HDL (test code = Chol/HDL) 2.2 ratio 0.0-5.0 LDL/HDL Ratio (test code = LDL/HDL Ratio) 1 N The equati on being used in this calculation is LDL/HDL Ratio=LDL Calc/HDL Chol Urinalysis [id number] 07:09:55* Test Item Value Reference Range Interpretation Comme nts UA WBC (test code = UA WBC) 0-5 0-5 UA RBC (test code = UA RBC) None Seen 0-5 UA Mucous (test code = UA Mucous) Moderate A Urinalysis with Culture, if [id number] 07:09:55* Test Item Value Reference Range Interpretation Comme nts UA Color (test code = UA Color) HARISH Yellow A UA Appear (test code = UA Appear) CLEAR Clear UA pH (test code = UA pH) 7 N UA Spec Grav (test code = UA Spec Grav) 1.026 1.001-1.035 UA Glucose (test code = UA Glucose) NEG Negative UA Bili (test code = UA Bili) 1 mg/dL Negative A UA Ketones (test code = UA Ketones) 5 mg/dL Negative UA Blood (test code = UA Blood) 150 cells/mcL Negative A UA Protein (test code = UA Protein) 25 mg/dL Negative A UA Urobilinogen (test code = UA Urobilinogen) 1 mg/dL >0.2 A UA Nitrite (test code = UA Nitrite) NEG Negative UA Leuk Est (test code = UA Leuk Est) 25 cells/mcL Negative A UA Micro Ind? (test code = UA Micro Ind?) Indicated Not Indicated A Result cre ated by rule GL_[id number]_MICRO_IN D Urine Drug [id number] 14:08:27* Test Item Value Reference Range Interpretation Comme nts Amphetamine Screen Ur (test code = Amphetamine Screen Ur) Negative Negative Barbiturate Screen Ur (test code = Barbiturate Screen Ur) Negative Negative Benzodiazepines Ur (test code = Benzodiazepines Ur) Negative Negative Cocaine Screen Ur (test code = Cocaine Screen Ur) Negative Negative U Methadone Scr (test code = U Methadone Scr) Negative Negative Opiate Screen Ur (test code = Opiate Screen Ur) Negative Negative U PCP Scrn (test code = U PCP Scrn) Negative Negative Cannabinoid Screen Ur (test code = Cannabinoid Screen Ur) POSITIVE Negative A U TCA (test code = U TCA) Negative Negative The results of a ll drug screen tests are only preliminary. Clinical consideration and professional judgment should be applied to any drug of abuse test result, particularly when preliminary positive results are obtained. Please order a separate confirmatory test if desired. Comprehensive Metabolic [id number] 13:47:07* Test Item Value Reference Range Interpretation Comme nts Sodium Level (test code = So dium Level) 139.0 mmol/L 135.0-145.0 Potassium Level (test code = Potassium Level) 3.3 mmol/L 3.5-5.1 L Chloride Level (test code = Chloride Level) 95 mmol/L 98-105 L CO2 (test code = CO2) 28 mmol/L 22-29 Anion Gap (test code = Anion Gap) 16 mmol/L 7-16 BUN (test code = BUN) 6.40 mg/dL 6.00-20.00 Creatinine Level (test code = Creatinine Level) 1.00 mg/dL 0.70-1.20 BUN/Creat Ratio (test code = BUN/Creat Ratio) 6 N Glucose Level (test code = Glucose Level) 94 mg/dL 70-115 Calcium Level (test code = Calcium Level) 9.8 mg/dL 8.3-10.5 Alk Phos (test code = Alk Phos) 121 U/L 40-129 Bilirubin Total (test code = Bilirubin Total) 0.4 mg/dL 0.1-0.9 Albumin Level (test code = Albumin Level) 4.5 g/dL 3.5-5.2 Protein Total (test code = Protein Total) 7.6 g/dL 6.4-8.3 ALT (test code = ALT) 143 U/L 1-41 H AST (test code = AST) 158 U/L 1-40 H Globulin (test code = Globulin) 3.1 g/dL 2.9-3.1 A/G Ratio (test code = A/G Ratio) 1.5 ratio N Comprehensive Metabolic [id number] 13:47:07* Test Item Value Reference Range Interpretation Comme nts Sodium Level (test code = Sodium Level) 139.0 mmol/L 135.0-145.0 Potassium Level (test code = Potassium Level) 3.3 mmol/L 3.5-5.1 L Chloride Level (test code = Chloride Level) 95 mmol/L 98-105 L CO2 (test code = CO2) 28 mmol/L 22-29 Anion Gap (test code = Anion Gap) 16 mmol/L 7-16 BUN (test code = BUN) 6.40 mg/dL 6.00-20.00 Creatinine Level (test code = Creatinine Level) 1.00 mg/dL 0.70-1.20 BUN/Creat Ratio (test code = BUN/Creat Ratio) 6 N Glucose Level (test code = Glucose Level) 94 mg/dL 70-115 Calcium Level (test code = Calcium Level) 9.8 mg/dL 8.3-10.5 Alk Phos (test code = Alk Phos) 121 U/L 40-129 Bilirubin Total (test code = Bilirubin Total) 0.4 mg/dL 0.1-0.9 Albumin Level (test code = Albumin Level) 4.5 g/dL 3.5-5.2 Protein Total (test code = Protein Total) 7.6 g/dL 6.4-8.3 ALT (test code = ALT) 143 U/L 1-41 H AST (test code = AST) 158 U/L 1-40 H Globulin (test code = Globulin) 3.1 g/dL 2.9-3.1 A/G Ratio (test code = A/G Ratio) 1.5 ratio N eGFR AA (test code = eGFR AA) >60 mL/min/1.73 m2 N eGFR (estimated Glomerular Filtration Rate) is an estimated value, calculated from the patient's serum creatinine using the MDRD equation. It is NOT the patient's actual GFR. The eGFR provides a more clinically useful measure of kidney disease than serum creatinine alone.This calculation takes sex and race into account, if the information is provided. If the race is not provided, and the patient is -[place], multiply by 1.212. If sex is not provided, and the patient is female, multiply by 0.742. Results for patients <18 years of age have not been validated by the MDRD study and should be interpreted with caution. eGFR Result Interpretation:eGFR > or = 60 is in the Normal RangeeGFR < 60 may mean kidney diseaseeGFR < 15 may mean kidney failure Ranges recommended by the National Kidney Foundation, http://nkdep.nih.gov Alcohol [id number] 13:47:07* Test Item Value Reference Range Interpretation Comme nts Ethanol Level (test code = Ethanol Level) 0.04 g/dL 0.00-0.01 H Intoxicated 0.08 0 g/dL or more Ethanol Inst (test code = Ethanol Inst) 45 N Comprehensive Metabolic [id number] 13:47:07* Test Item Value Reference Range Interpretation Comme nts Sodium Level (test code = Sodium Level) 139.0 mmol/L 135.0-145.0 Potassium Level (test code = Potassium Level) 3.3 mmol/L 3.5-5.1 L Chloride Level (test code = Chloride Level) 95 mmol/L 98-105 L CO2 (test code = CO2) 28 mmol/L 22-29 Anion Gap (test code = Anion Gap) 16 mmol/L 7-16 BUN (test code = BUN) 6.40 mg/dL 6.00-20.00 Creatinine Level (test code = Creatinine Level) 1.00 mg/dL 0.70-1.20 BUN/Creat Ratio (test code = BUN/Creat Ratio) 6 N Glucose Level (test code = Glucose Level) 94 mg/dL 70-115 Calcium Level (test code = Calcium Level) 9.8 mg/dL 8.3-10.5 Alk Phos (test code = Alk Phos) 121 U/L 40-129 Bilirubin Total (test code = Bilirubin Total) 0.4 mg/dL 0.1-0.9 Albumin Level (test code = Albumin Level) 4.5 g/dL 3.5-5.2 Protein Total (test code = Protein Total) 7.6 g/dL 6.4-8.3 ALT (test code = ALT) 143 U/L 1-41 H AST (test code = AST) 158 U/L 1-40 H Globulin (test code = Globulin) 3.1 g/dL 2.9-3.1 A/G Ratio (test code = A/G Ratio) 1.5 ratio N eGFR AA (test code = eGFR AA) >60 mL/min/1.73 m2 N eGFR (estimated Glomerular Filtration Rate) is an estimated value, calculated from the patient's serum creatinine using the MDRD equation. It is NOT the patient's actual GFR. The eGFR provides a more clinically useful measure of kidney disease than serum creatinine alone.This calculation takes sex and race into account, if the information is provided. If the race is not provided, and the patient is -[place], multiply by 1.212. If sex is not provided, and the patient is female, multiply by 0.742. Results for patients <18 years of age have not been validated by the MDRD study and should be interpreted with caution. eGFR Result Interpretation:eGFR > or = 60 is in the Normal RangeeGFR < 60 may mean kidney diseaseeGFR < 15 may mean kidney failure Ranges recommended by the National Kidney Foundation, http://nkdep.nih.gov eGFR Non-AA (test code = eGFR Non-AA) >60.00 mL/min/1.73 m2 N eGFR (estimated Glomerular Filtration Rate) is an estimated value, calculated from the patient's serum creatinine using the MDRD equation. It is NOT the patient's actual GFR. The eGFR provides a more clinically useful measure of kidney disease than serum creatinine alone.This calculation takes sex and race into account, if the information is provided. If the race is not provided, and the patient is -[place], multiply by 1.212. If sex is not provided, and the patient is female, multiply by 0.742. Results for patients <18 years of age have not been validated by the MDRD study and should be interpreted with caution. eGFR Result Interpretation:eGFR > or = 60 is in the Normal RangeeGFR < 60 may mean kidney diseaseeGFR < 15 may mean kidney failure Ranges recommended by the National Kidney Foundation, http://nkdep.nih.gov Automated [id number] 13:43:11* Test Item Value Reference Range Interpretation Comme nts Neutro Auto (test code = Allan tro Auto) 55.7 % 36.0-70.0 Lymph Auto (test code = Lymph Auto) 34.0 % 12.0-44.0 [place] Auto (test code = [place] Auto) 7.8 % 0.0-11.0 Eos, Auto (test code = Eos, Auto) 1.6 % 0.0-7.0 Basophil Auto (test code = B asophil Auto) 0.6 % 0.0-2.0 Neutro Absolute (test code = Neutro Absolute) 4.8 x10 1.6-7.4 Lymph Absolute (test code = Lymph Absolute) 2.94 x10 .50-4.60 [place] Absolute (test code = M jas Absolute) .67 x10 .00-1.20 Eos Absolute (test code = Eo s Absolute) 0.14 x10 0.00-0.74 Baso Absolute (test code = B aso Absolute) 0.05 x10 0.00-0.21 IG [id number] 13:43:11* Test Item Value Reference Range Interpretation Comme nts IG (test code = IG) 0.3 % 0.0-5.0 IG Abs (test code = IG Abs) 0 x10 N Complete Blood Count with [id number] 13:43:10* Test Item Value Reference Range Interpretation Comme nts WBC (test code = WBC) 8.6 x10 4.4-10.5 RBC (test code = RBC) 4.60 x10 4.10-5.70 Hgb (test code = Hgb) 16.0 g/dL 13.4-17.4 MCV (test code = MCV) 95.90 fL 80.00-100.00 Hct (test code = Hct) 44.1 % 38.7-52.0 MCHC (test code = MCHC) 36.30 g/dL 32.00-37.50 RDW CV (test code = RDW CV) 13.5 % 11.5-14.5 MCH (test code = MCH) 34.8 pg 27.0-32.5 H Platelets (test code = Platelets) 244.0 x10 140.0-440.0 MPV (test code = MPV) 9.7 fL N Slide Review (test code = Slide Review) Auto Auto Result crea yue by GL_[id number]_SLIDE_REV_AUTO nRBC (test code = nRBC) 0 N NRBC Abs (test code = NRBC Abs) 0.00 x10 N IPF (test code = IPF) 0 % N
== END 2024-01-11 23:59 | disposition home or self-care (01) ==
LOC: ER 23:35
DX: L03.115 Cellulitis of right lower limb (principal)